=== PATIENT | male | born 1975 | race Caucasian/White ===

== ENCOUNTER 2020-03-19 20:03 | Emergency (ER) | payer OTHER, BC ==
[2020-03-19] MEDS ORDERED: Acetaminophen/HYDROcodone 325-5 MG Tab PO ONE (20:04)
[2020-03-19] MEDS ORDERED: Cyclobenzaprine 10 MG Tab PO ONE ×2 (20:04→20:53)
[2020-03-19] MEDS ORDERED: Acetaminophen/HYDROcodone 325-5 MG Tab PO PRN (20:52)
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
== END 2020-03-19 21:17 | disposition home or self-care (01) ==
LOC: FB.ED 20:03
DX: S29.012A Strain of muscle and tendon of back wall of thorax, initial encounter (principal); S50.02XA Contusion of left elbow, initial encounter; J45.909 Unspecified asthma, uncomplicated; Z91.018 Allergy to other foods; Z79.899 Other long term (current) drug therapy; V89.2XXA Person injured in unspecified motor-vehicle accident, traffic, initial encounter
CPT/HCPCS: 99284; A9270

== ENCOUNTER 2022-02-05 08:02 | Emergency (ER) | payer BC ==
[2022-02-05] MEDS ORDERED: Sodium Chloride 0.9% 10 ML Syringe FLUSH PRN (08:22)
[2022-02-05] MEDS ORDERED: Ondansetron 4 MG/2 ML SDV IVPUSH ONE (08:22)
[2022-02-05] MEDS ORDERED: Sodium Chloride 0.9% 1,000 ML IV ONE (08:22)
[2022-02-05] MEDS ORDERED: Atropine/Diphenoxylate 0.025-2.5 MG Tab PO STA (08:48)
[2022-02-05] MEDS ORDERED: methylPREDNISolone Sodium Succinate 125 MG/2 ML SDV IVPUSH STA (08:49)
[2022-02-05] MEDS ORDERED: Albuterol/Ipratropium 3.0-0.5 MG/3 ML Neb Soln NEB STA (08:49)
[2022-02-05] MEDS ORDERED: Sodium Chloride 0.9% 1,000 ML IV SCH (09:15)
== END 2022-02-05 11:10 | disposition home or self-care (01) ==
LOC: FB.ED 08:02 → SUPCPDRO 08:02 → FB.ED 11:10
DX: K52.9 Noninfective gastroenteritis and colitis, unspecified (principal); J45.901 Unspecified asthma with (acute) exacerbation; E86.0 Dehydration; Z91.018 Allergy to other foods; Z79.899 Other long term (current) drug therapy
CPT/HCPCS: 36415; 71046; 80048; 85025; 94640; 96374; 96375; 99283; 99285-25; A9270-GY; J2405; J2930; J7030; J7620

== ENCOUNTER 2022-09-23 18:36 | Emergency (ER) | payer BC | END 2022-09-23 19:46 | disposition home or self-care (01) | LOC: FB.ED 18:36 | DX: S61.512A Laceration without foreign body of left wrist, initial encounter (principal); J45.909 Unspecified asthma, uncomplicated; Z91.018 Allergy to other foods; Z79.899 Other long term (current) drug therapy; W22.8XXA Striking against or struck by other objects, initial encounter; Y92.59 Other trade areas as the place of occurrence of the external cause | CPT/HCPCS: 12002; 99282 ==

== ENCOUNTER 2024-07-07 13:40 | Emergency (ER) | payer BC, OTHER ==
[2024-07-07 14:15] LABS: BASOPHILS PERCENT AUTO 0.3 % (0.3-3.8); EOSINOPHILS ABSOLUTE AUTO 0.1 x10-3/uL (0.0-0.6); EOSINOPHILS PERCENT AUTO 1.8 % (0.1-6.8); HEMATOCRIT 45.3 % (38.3-50.1); HEMOGLOBIN 15.6 g/dL (12.9-17.7); LYMPHOCYTES ABSOLUTE AUTO 1.4 x10-3/uL (0.5-4.5); LYMPHOCYTES PERCENT AUTO 18.6 % (15.8-45.3); MEAN CORPUSCULAR HEMOGLOBIN 29.5 pg (27.0-33.3); MEAN CORPUSCULAR HGB CONC 34.4 g/dL (28.7-35.3); MEAN CORPUSCULAR VOLUME 85.9 fL (80.8-98.7); MEAN PLATELET VOLUME 8.3 fL (6.7-11.0); MONOCYTES ABSOLUTE AUTO 0.6 x10-3/uL (0.0-1.2); MONOCYTES PERCENT AUTO 7.4 % (5.5-15.2); NEUTROPHILS ABSOLUTE AUTO 5.4 x10-3/uL (1.7-6.9); NEUTROPHILS PERCENT AUTO 71.9 % (40.3-71.8); PLATELET COUNT,PLT 152 x10(3)uL (117-477); RED BLOOD CELL COUNT 5.27 x10(6)uL (3.90-5.90); RED CELL DISTRIBUTION WIDTH 13.3 % (12.4-15.0); WHITE BLOOD CELL COUNT,WBC 7.5 x10-3/uL (3.2-10.1)
[2024-07-07 14:21] LABS: ALANINE AMINOTRANSFERASE,ALT 17 U/L (12-36); ALKALINE PHOSPHATASE 98 IU/L (56-112)
[2024-07-07 14:22] LABS: LACTIC ACID 1.7 mmol/L (0.4-2.0)
[2024-07-07 14:31] LABS: BLOOD UREA NITROGEN,BUN 15 mg/dL (7-18); CALCIUM 8.9 mg/dL (8.6-10.2); CARBON DIOXIDE,CO2 25 mmol/L (21-32); CHLORIDE,CL 105 mmol/L (100-110); EST CRCL DRUG DOSING (CG) 84.46 mL/min; ESTIMATED GFR 93 mL/min (>60); GLUCOSE RANDOM 122 mg/dL (80-116); POTASSIUM,K 3.8 mmol/L (3.5-5.3); SODIUM,NA 140 mmol/L (135-145)
[2024-07-07] MEDS: Sodium Chloride 0.9% 1,000 ML IV ONE (14:32)
[2024-07-07 14:37] LABS: A/G RATIO 1.1; ALBUMIN 3.5 g/dL (3.5-5.2); ASPARTATE AMNIOTRANSFERASE,AST 13 IU/L (5-25); BILIRUBIN TOTAL 0.9 mg/dL (0.1-1.3); PROTEIN TOTAL,TP 6.7 g/dL (6.0-8.0)
[2024-07-07] MEDS: Ketorolac 30 MG/ML SDV IVPUSH ONE (15:31)
[2024-07-07] MEDS: Ketorolac 15 MG/ML SDV IVPUSH ONE (15:31)
[2024-07-07] MEDS: Sodium Chloride 0.9% 10 ML Syringe FLUSH PRN (15:34)
== END 2024-07-07 16:00 | disposition home or self-care (01) ==
LOC: FB.ED 13:40
DX: R07.89 Other chest pain (principal); F41.9 Anxiety disorder, unspecified; Z79.899 Other long term (current) drug therapy; Z79.51 Long term (current) use of inhaled steroids; Z91.018 Allergy to other foods
CPT/HCPCS: 36415; 71046; 80053; 83605; 83735; 84484; 85025; 85379; 86140; 93005; 96361; 96374; 99285; J1885; J3490; J7030